=== PATIENT | female | born 1945 | race American Indian/Alaskan Native ===

== ENCOUNTER 2016-11-01 15:06 | Outpatient (CLI) | payer MEDICARE ==
--- NOTE | 2016-11-02 09:31 | Mammography Report ---
Bilateral mammogram: Compared to 11/01/15. CAD study utilized. Findings: Predominance of adipose tissue bilaterally. Benign densities with benign axillary nodes. No microcalcification. Impression: Benign findings. Annual followup recommended. BI-RADS CATEGORY: 2 = Benign ACR BI-RADS MAMMOGRAPHIC CODES: 0 = Needs additional imaging evaluation; 1 = Negative; 2 = Benign; 3 = Probably benign; 4 = Suspicious; 5 = Malignant; 6 = Known biopsy-proven malignancy COMMENT: 1. Dense breast tissue, i.e., adenosis, fibrocystic changes, etc., may obscure an underlying neoplasm. 2. Approximately 10% of cancers are not detected with mammography. 3. A negative mammography report should not delay biopsy if a clinically suspicious mass is present. COMMENT: Patient follow-up letters are generated in [facility].
== END 2016-11-01 15:07 | disposition home or self-care (01) ==
LOC: MAMMO 15:06
PROVIDERS: ATTEND Family Medicine
DX: Z12.31 Encounter for screening mammogram for malignant neoplasm of breast (principal)
CPT/HCPCS: 77067; G0202

== ENCOUNTER 2017-07-13 10:37 | Inpatient (IN) | payer MEDICARE ==
--- NOTE | 2017-07-12 13:27 | Anesthesia Consultation ---
Anesthesia Consult and Med Hx Date of service: 07/13/17 - Airway Anesthetic Teeth Evaluation: Partials ROM Head & Neck: Adequate Mental/Hyoid Distance: Adequate Mallampati Class: Class II Intubation Access Assessment: Probably Good - Pulmonary Exam CTA: Yes - Cardiac Exam Cardiac Exam: RRR - Pre-Operative Health Status ASA Pre-Surgery Classification: ASA3 Proposed Anesthetic Plan: General - Pulmonary COPD: Yes Home Oxygen Therapy: No Hx Sleep Apnea: Yes (WONT USES A CPAP) - Cardiovascular System Hx Hypertension: Yes (1985) Hx Heart Attack/AMI: No - Central Nervous System Hx Psychiatric Problems: No - Other Systems Hx Alcohol Use: No Hx Substance Use: No Hx Cancer: Yes
[~2017-07-13 10:37] MED LIST: LACTATED RINGERS 1,000 ML IV SCH; PEPCID IV NR; PEPCID PO NR; VERSED IV NR
[2017-07-13] MEDS ORDERED: NACL BACTERIOSTATIC INFILTRATI ONE (10:47)
[2017-07-13] MEDS ORDERED: ANCEF/STERILE WATER 2 GM/20 ML IV NR (11:00)
[2017-07-13] MEDS ORDERED: DIPRIVAN 10 MG/ML IV ONE (11:31)
[2017-07-13] MEDS ORDERED: DILAUDID ONE ×3 (11:31→14:15)
[2017-07-13] MEDS ORDERED: XYLOCAINE MPF 2% ONE (11:31)
[2017-07-13] MEDS ORDERED: ZEMURON IV ONE (11:31)
[2017-07-13] MEDS ORDERED: MARCAINE 0.5% 0 ML INFILTRATI ONE (11:38)
[2017-07-13] MEDS ORDERED: ePHEDrine SULFATE ONE (12:22)
[2017-07-13] MEDS ORDERED: ZOFRAN ONE (12:29)
[2017-07-13] MEDS ORDERED: DECADRON ONE (12:29)
[2017-07-13] MEDS ORDERED: LEVAQUIN 500MG/100ML 500 MG/100 ML BAG IV ONE (12:35)
[2017-07-13] MEDS ORDERED: NACL 0.9% IR ONE (12:51)
[2017-07-13] MEDS ORDERED: ROBINUL ONE ×2 (12:53→13:16)
[2017-07-13] MEDS ORDERED: NEOSTIGMINE ONE (12:53)
[2017-07-13] MEDS ORDERED: LACTATED RINGERS 1,000 ML ONE (13:16)
[2017-07-13] MEDS: DILAUDID IV PRN ×3 (13:35→13:55)
[2017-07-13] MEDS ORDERED: LEVAQUIN 500MG/100ML 500 MG/100 ML BAG IV NR (14:00)
--- NOTE | 2017-07-13 14:46 | Operative Report ---
PREOPERATIVE DIAGNOSIS: Rule out cholecystitis. POSTOPERATIVE DIAGNOSES: Cholecystitis with severe thickening and inflammation of the gallbladder surrounded by extensive omental and intestinal adhesions. Also, purulence noted within the gallbladder lumen. PROCEDURE: Exploratory laparotomy and open cholecystectomy. Difficult case due to the amount of inflammation and surrounding adhesions. SURGEON: Ed Wills MD PRECAST MOLDER: Dr. Burton. ANESTHESIA: General. ESTIMATED BLOOD LOSS: Minimal. DRAINS: One 19 Morris drain left. COMPLICATIONS: No complications. DESCRIPTION OF PROCEDURE: The patient was taken to the operating room, prepped and draped in usual sterile fashion. Right subcostal incision was made and abdomen entered. Upon entrance into the abdomen, a large phlegmonous type mass was noted. The previously placed CT-guided percutaneous drainage catheter was identified and followed down to the gallbladder. Gallbladder was grasped at the fundus with a ring clamp. Slow and tedious dissection was carried out until the gallbladder was able to be freed from the surrounding intestinal and omental adhesions. At this point, labs were placed to separate the gallbladder from the transverse colon as well as the stomach. Dissection was carried out from the fundus down towards the infundibulum. Upon reaching the neck of the gallbladder some inflamed lymph nodes were noted. Slow dissection was carried out along this area until the neck of the gallbladder itself could be distinctly identified into the cystic duct. Cystic duct was then doubly ligated as well as clipped and transected. The artery in the area of the lymph node was also doubly ligated and transected. The specimen was then removed. During dissection as previously mentioned, some purulence was noted. Aerobic and anaerobic cultures were taken. The entire area by the gallbladder fossa was then irrigated copiously and dried. Hemostasis obtained with electrocautery as well as Kanwal powder. Once again, the area was inspected and noted to be dry. A 19 Morris was left draining the gallbladder fossa. The drain was brought out through a separate stab incision. The drain was secured to the skin with a 2-0 silk suture. Posterior fascia was then closed with running 0 Vicryl suture and anterior fascia closed with interrupted #1 Vicryl sutures. Subcutaneous tissues irrigated and skin closed with nirali. The patient tolerated the procedure well and left OR in stable condition. JOB# [id number] REBECCA/NTS
[2017-07-13] MEDS: MORPHINE IV PRN ×2 (16:54→21:30)
[2017-07-13] MEDS: D5W/0.45% NACL/KCL 20 MEQ 20 MEQ/1,000 ML BAG IV SCH (18:50)
[2017-07-13] MEDS: ZOFRAN IV PRN (21:30)
[2017-07-14] MEDS: MORPHINE IV PRN ×5 (03:02→20:31)
[2017-07-14] MEDS: D5W/0.45% NACL/KCL 20 MEQ 20 MEQ/1,000 ML BAG IV SCH ×2 (04:23→15:20)
[2017-07-14 04:24] LABS: Basophils % (Auto) 0.1 % (0.0-1.8); Hematocrit 27.8 % (30.3-42.9); Lymphocytes # (Auto) 0.5 K/mm3 (1.2-5.4); Mean Corpuscular HGB Conc 32 % (30-34); Mean Corpuscular Volume 74 fl (79-97); Monocytes # (Auto) 0.7 K/mm3 (0.0-0.8); Monocytes % (Auto) 6.3 % (0.0-7.3); Platelet Count 215 K/mm3 (140-440); Red Blood Count 3.75 M/mm3 (3.65-5.03)
[2017-07-14 04:25] LABS: Mean Corpuscular Hemoglobin 24 pg (28-32)
[2017-07-14 04:54] LABS: Calcium 8.2 mg/dL (8.4-10.2)
[2017-07-14] MEDS: ZOFRAN IV PRN ×3 (06:48→15:26)
--- NOTE | 2017-07-14 09:18 | Progress Note ---
Assessment and Plan POD #1 Pt feeling well. c/o incisional pain. Abd soft. dressings dry. minimal ANDREW drainage. Lungs - slightly decreased bi- basilar BS post op LFT's wnl slightly dehydrated atelectasis CPT aerosol Rx may start ice chips and po meds OOB as henok awaiting hospitalist eval Selected Entries 07/14/17 07:35 Temperature 99.1 F Pulse Rate 75 Respiratory 20 Rate Blood Pressure 114/68 [Left] Laboratory Tests 07/14/17 07/14/17 04:07 04:07 WBC 10.3 Hgb 9.0 L Hct 27.8 L Sodium 139 Potassium 4.0 Chloride 101.6 BUN 32 H Creatinine 1.1 Glucose 147 H Total Bilirubin 0.30 AST 56 H ALT 14 Alkaline Phosphatase 39 Objective Vital Signs - 12hr 07/14/17 07/14/17 07/14/17 00:24 04:19 04:20 Temperature 98.5 F 99.6 F Pulse Rate 71 71 70 Respiratory 20 20 Rate Blood Pressure 109/60 112/67 Blood Pressure [Left] O2 Sat by Pulse 92 93 93 Oximetry 07/14/17 07/14/17 07:34 07:35 Temperature 99.1 F Pulse Rate 71 75 Respiratory 20 Rate Blood Pressure Blood Pressure 114/68 [Left] O2 Sat by Pulse 91 90 Oximetry - Labs 07/14/17 04:07 07/14/17 04:07 Diabetes panel 07/14/17 Range/Units 04:07 Sodium 139 (137-145) mmol/L Potassium 4.0 (3.6-5.0) mmol/L Chloride 101.6 (98-107) mmol/L Carbon Dioxide 24 (22-30) mmol/L BUN 32 H (7-17) mg/dL Creatinine 1.1 (0.7-1.2) mg/dL Glucose 147 H (65-100) mg/dL Calcium 8.2 L (8.4-10.2) mg/dL AST 56 H (5-40) units/L ALT 14 (7-56) units/L Alkaline Phosphatase 39 (35-129) units/L Total Protein 6.1 L (6.3-8.2) g/dL Albumin 3.0 L (3.9-5) g/dL Calcium panel 07/14/17 Range/Units 04:07 Calcium 8.2 L (8.4-10.2) mg/dL Albumin 3.0 L (3.9-5) g/dL Pituitary panel 07/14/17 Range/Units 04:07 Sodium 139 (137-145) mmol/L Potassium 4.0 (3.6-5.0) mmol/L Chloride 101.6 (98-107) mmol/L Carbon Dioxide 24 (22-30) mmol/L BUN 32 H (7-17) mg/dL Creatinine 1.1 (0.7-1.2) mg/dL Glucose 147 H (65-100) mg/dL Calcium 8.2 L (8.4-10.2) mg/dL Adrenal panel 07/14/17 Range/Units 04:07 Sodium 139 (137-145) mmol/L Potassium 4.0 (3.6-5.0) mmol/L Chloride 101.6 (98-107) mmol/L Carbon Dioxide 24 (22-30) mmol/L BUN 32 H (7-17) mg/dL Creatinine 1.1 (0.7-1.2) mg/dL Glucose 147 H (65-100) mg/dL Calcium 8.2 L (8.4-10.2) mg/dL Total Bilirubin 0.30 (0.1-1.2) mg/dL AST 56 H (5-40) units/L ALT 14 (7-56) units/L Alkaline Phosphatase 39 (35-129) units/L Total Protein 6.1 L (6.3-8.2) g/dL Albumin 3.0 L (3.9-5) g/dL
[2017-07-14] MEDS ORDERED: PROAIR IH PRN (09:21)
[2017-07-14] MEDS ORDERED: PROVENTIL IH PRN (09:44)
--- NOTE | 2017-07-14 18:52 | History and Physical Report ---
History of Present Illness Date of admission: 07/13/17 13:21 Chief complaint: My stomach hurts a little but im fine History of present illness: 72 YO Female with Obesity, COPD, LUCA Noncompliant with CPAP, consult placed by Dr. Wills for COPD. Pt seen and evaluated, Pt denies shortness of breath, fever , chills, CP, Palpitations, NVD,Syncope, Increased sputum production, increased productive cough, nicotine use, unintentional weight loss, night sweats, leg swelling, calf pain, individual/family history of DVT/PE. No reported nursing events. Past History Past Medical History: COPD, other (Obesity, LUCA) Past Surgical History: cholecystectomy Social history: . denies: smoking, alcohol abuse, prescription drug abuse Family history: diabetes, hypertension Medications and Allergies Allergies Allergy/AdvReac Type Severity Reaction Status Date / Time lisinopril Allergy Unknown Verified 07/09/17 17:44 Home Medications Medication Instructions Recorded Confirmed Last Taken Type Aspirin EC [Aspirin Enteric Coated 81 mg PO QDAY 06/07/17 07/13/17 1 Week Ago History TAB] ~07/06/17 Bimatoprost [Lumigan 0.01%] 1 drop OP QPM 06/07/17 07/13/17 2 Weeks Ago History ~06/29/17 Cetirizine HCl [ZyrTEC] 10 mg PO QDAY PRN 06/07/17 07/13/17 3 Weeks Ago History ~06/22/17 Fluticasone/Vilanterol [Breo 1 each IH DAILY 06/07/17 07/13/17 07/13/17 08:45 History Ellipta 100-25 Mcg INH] Omeprazole 40 mg PO QDAY 06/07/17 07/13/17 07/11/17 History Spironolactone [Aldactone] 25 mg PO QDAY 06/07/17 07/13/17 07/12/17 History Acetaminophen [Acetaminophen TAB] 325 mg PO Q4H PRN #30 tablet 06/13/17 1 Month Ago Rx ~06/13/17 Levofloxacin [Levaquin] 750 mg PO QDAY #7 day 06/13/17 07/13/17 3 Weeks Ago Rx ~06/22/17 Metoclopramide [Reglan ORAL LIQ] 10 mg PO Q8HR PRN #7 day 06/13/17 07/13/17 1 Month Ago Rx ~06/13/17 Oxycodone HCl/Acetaminophen 1 each PO Q4H PRN #30 tablet 06/13/17 07/13/1707/12 Rx [Percocet 10/325 mg] Atenolol [Tenormin] 100 mg PO DAILY 07/13/17 07/13/17 07/13/17 08:45 History Losartan/Hydrochlorothiazide 1 tab PO DAILY 07/13/17 07/13/17 07/13/17 08:45 History [Losartan-Hctz 100-25 mg Tab] Active Meds: Active Medications Acetaminophen/Hydrocodone Bitart ([place] 5/325) 1 each PO Q6H PRN PRN Reason: Pain, Moderate (4-6) Albuterol (Proair) 2 puff IH Q6HRT PRN PRN Reason: Shortness Of Breath Lactated Ringer's (Lactated Ringers) 1,000 mls @ 100 mls/hr IV DIRECT [place] Last Admin: 07/13/17 10:55 Dose: 100 mls/hr Potassium Chloride/Dextrose/Sod Cl (D5w/0.45% Nacl/Kcl 20 Meq) 20 meq in 1,000 mls @ 100 mls/hr IV DIRECT [place] Last Admin: 07/14/17 15:20 Dose: 100 mls/hr Morphine Sulfate (Morphine) 2 mg IV Q3H PRN PRN Reason: Pain, Moderate (4-6) Last Admin: 07/14/17 15:25 Dose: 2 mg Ondansetron HCl (Zofran) 4 mg IV Q4H PRN PRN Reason: N/V unrelieved by Eugenio Last Admin: 07/14/17 15:26 Dose: 4 mg Review of Systems Constitutional: no weight loss, no weight gain, no fever, no chills Ears, nose, mouth and throat: no ear pain, no ear discharge, no tinnitis, no decreased hearing, no nose pain Breasts: no change in shape, no swelling, no mass Cardiovascular: no chest pain, no orthopnea, no palpitations, no rapid/ irregular heart beat, no edema Respiratory: no cough, no cough with sputum, no excessive sputum, no hemoptysis , no shortness of breath Gastrointestinal: no nausea, no vomiting, no diarrhea, no constipation Genitourinary Female: no pelvic pain, no flank pain, no menorrhagia, no dysuria , no urinary frequency Rectal: no pain, no incontinence, no bleeding Musculoskeletal: no neck stiffness, no neck pain, no shooting arm pain, no arm numbness/tingling Integumentary: no rash, no pruritis, no redness, no sores Neurological: no transient paralysis, no paralysis, no weakness, no parathesias , no numbness Psychiatric: no memory loss, no change in sleep habits, no sleep disturbances, no insomnia, no hypersomnia, no change in appetite Endocrine: no heat intolerance, no polyphagia, no excessive thirst, no polydipsia, no polyuria, no nocturia, no weight change Hematologic/Lymphatic: no easy bruising, no easy bleeding Allergic/Immunologic: no urticaria, no allergic rhinitis, no wheezing Exam - Constitutional Vitals: Temp Pulse Resp BP Pulse Ox 99.4 F 71 20 135/82 94 07/14/17 12:05 07/14/17 12:05 07/14/17 15:55 07/14/17 12:05 07/14/17 12:05 General appearance: Present: no acute distress, obese - EENT Eyes: Present: PERRL ENT: hearing intact, clear oral mucosa - Neck Neck: Present: supple, normal ROM - Respiratory Respiratory effort: normal Respiratory: bilateral: CTA - Cardiovascular Heart Sounds: Present: S1 & S2. Absent: rub, click - Extremities Extremities: pulses symmetrical, No edema Peripheral Pulses: within normal limits - Abdominal General gastrointestinal: Present: soft, tender, non-distended, normal bowel sounds Localized gastrointestinal: tender: RLQ (appropriately tender) Female genitourinary: Present: normal - Integumentary Integumentary: Present: clear, warm, dry - Musculoskeletal Musculoskeletal: gait normal, strength equal bilaterally - Psychiatric Psychiatric: appropriate mood/affect, intact judgment & insight - Neurologic Neurologic: CNII-XII intact, moves all extremities Results - Labs CBC & Chem 7: 07/14/17 04:07 07/14/17 04:07 Labs: Abnormal lab results 07/14/17 07/14/17 Range/Units 04:07 04:07 Hgb 9.0 L (10.1-14.3) gm/dl Hct 27.8 L (30.3-42.9) % MCV 74 L (79-97) fl MCH 24 L (28-32) pg Lymph % (Auto) 5.0 L (13.4-35.0) % Lymph # 0.5 L (1.2-5.4) K/mm3 Seg Neutrophils % 88.6 H (40.0-70.0) % Seg Neutrophils # 9.1 H (1.8-7.7) K/mm3 BUN 32 H (7-17) mg/dL Glucose 147 H (65-100) mg/dL Calcium 8.2 L (8.4-10.2) mg/dL AST 56 H (5-40) units/L Total Protein 6.1 L (6.3-8.2) g/dL Albumin 3.0 L (3.9-5) g/dL Assessment and Plan - Patient Problems (1) COPD (chronic obstructive pulmonary disease) Current Visit: Yes Status: Acute Plan to address problem: Early ambulation, OOB to chair QID and PRN, Ambulate in hallway, Incentive spirometry, aspiration precautions, nebulizer therapy prn, supplemental oxygen prn as clinically indicated, (2) LUCA (obstructive sleep apnea) Current Visit: Yes Status: Acute Plan to address problem: Pt noncompliant with CPAP (3) Obesity (BMI 35.0-39.9 without comorbidity) Current Visit: Yes Status: Acute Plan to address problem: Increased physical activity as discharge, balanced diet.
[2017-07-15] MEDS: MORPHINE IV PRN ×5 (01:14→20:22)
[2017-07-15] MEDS: ZOFRAN IV PRN ×2 (01:14→23:06)
[2017-07-15] MEDS: D5W/0.45% NACL/KCL 20 MEQ 20 MEQ/1,000 ML BAG IV SCH ×3 (03:39→22:52)
[2017-07-15 04:47] LABS: Basophils % (Auto) 0.3 % (0.0-1.8); Eosinophils % (Auto) 0.2 % (0.0-4.3); Hematocrit 30.4 % (30.3-42.9); Lymphocytes # (Auto) 0.6 K/mm3 (1.2-5.4); Lymphocytes % (Auto) 5.4 % (13.4-35.0); Mean Corpuscular HGB Conc 33 % (30-34); Mean Corpuscular Volume 75 fl (79-97); Monocytes # (Auto) 0.7 K/mm3 (0.0-0.8); Monocytes % (Auto) 6.5 % (0.0-7.3); Platelet Count 226 K/mm3 (140-440); Red Blood Count 4.08 M/mm3 (3.65-5.03); Red Cell Distribution Width 14.6 % (13.2-15.2)
[2017-07-15 04:48] LABS: Mean Corpuscular Hemoglobin 25 pg (28-32)
--- NOTE | 2017-07-15 09:50 | Progress Note ---
Assessment and Plan POD # 2 Pt feeling O.K. not really ambulating Abd soft. dressings dry. minimal ANDREW drainage. bile cult + e coli stable uncontrolled HTN resp Rx & ambulation needed (have not been started) h/h stable continue Levaquin attempt low fat cl liq diet HTN control as per hospitalist Selected Entries 07/15/17 07/15/17 07/15/17 00:50 04:01 07:32 Temperature 99.5 F Pulse Rate 74 Blood Pressure 146/86 163/94 153/94 Laboratory Tests 07/15/17 04:18 WBC 11.3 H Hgb 10.0 L Hct 30.4 Objective Vital Signs - 12hr 07/15/17 07/15/17 07/15/17 00:50 04:01 07:32 Temperature 99.3 F 99.0 F 99.5 F Pulse Rate 75 76 74 Respiratory 20 20 20 Rate Blood Pressure 146/86 163/94 153/94 O2 Sat by Pulse 92 96 95 Oximetry - Labs 07/15/17 04:18 07/14/17 04:07
[2017-07-15] MEDS: LEVAQUIN 500MG/100ML 500 MG/100 ML BAG IV SCH (11:10)
[2017-07-15] MEDS: APRESOLINE IV PRN (16:13)
[2017-07-16] MEDS: MORPHINE IV PRN ×2 (02:05→20:39)
[2017-07-16] MEDS: NORCO 5/325 PO PRN ×5 (05:33→23:51)
[2017-07-16] MEDS: D5W/0.45% NACL/KCL 20 MEQ 20 MEQ/1,000 ML BAG IV SCH ×2 (10:01→19:56)
[2017-07-16] MEDS: LEVAQUIN 500MG/100ML 500 MG/100 ML BAG IV SCH (10:01)
--- NOTE | 2017-07-16 11:03 | Progress Note ---
Assessment and Plan Assessment and plan: 72 YO Female with Obesity, COPD, LUCA Noncompliant with CPAP, consult placed by Dr. Wills for COPD and HTN in a patient with post op open cholecystectomy. Pt seen and evaluated, Pt denies shortness of breath, fever, chills, CP, Palpitations, NVD,Syncope, Increased sputum production, increased productive cough, nicotine use, unintentional weight loss, night sweats, leg swelling, calf pain, individual/family history of DVT/PE. No reported nursing events. (1) S/P Open cholecystectomy * Surgery following (2) HTN Urgency * Restart home meds * IV hydralazin prn (3) COPD (chronic obstructive pulmonary disease) Early ambulation, OOB to chair QID and PRN, Ambulate in hallway, Incentive spirometry, aspiration precautions, nebulizer therapy prn, supplemental oxygen prn as clinically indicated, (4) LUCA (obstructive sleep apnea) Pt noncompliant with CPAP (5) Obesity (BMI 35.0-39.9 without comorbidity) Increased physical activity as discharge, balanced diet. (6) DVT/GI prophy As ordered. History Interval history: Patient seen and examined, remains with some abdominal pain, no BM yet but with gas. Hospitalist Physical - Constitutional Vitals: Temp Pulse Resp BP Pulse Ox 98.8 F 80 20 156/95 95 07/16/17 07:25 07/16/17 07:25 07/16/17 07:25 07/16/17 07:25 07/16/17 07:25 General appearance: Present: no acute distress, obese - EENT Eyes: Present: PERRL, EOM intact ENT: hearing intact - Neck Neck: Present: supple, normal ROM - Respiratory Respiratory effort: normal Respiratory: bilateral: CTA - Cardiovascular Rhythm: regular Heart Sounds: Present: S1 & S2 - Extremities Extremities: no ischemia, pulses intact, pulses symmetrical, No edema, normal temperature, Full ROM Peripheral Pulses: within normal limits - Abdominal General gastrointestinal: soft, tender, other (katie drain in place) Localized gastrointestinal: tender: RUQ (surgical site) - Integumentary Integumentary: Present: warm, dry (surgical dressing in place) - Psychiatric Psychiatric: appropriate mood/affect - Neurologic Neurologic: CNII-XII intact - Allied Health Allied health notes reviewed: nursing Results - Labs CBC & Chem 7: 07/15/17 04:18 07/14/17 04:07 Labs: Laboratory Last Values WBC 11.3 K/mm3 (4.5-11.0) H 07/15/17 04:18 RBC 4.08 M/mm3 (3.65-5.03) 07/15/17 04:18 Hgb 10.0 gm/dl (10.1-14.3) L 07/15/17 04:18 Hct 30.4 % (30.3-42.9) 07/15/17 04:18 MCV 75 fl (79-97) L 07/15/17 04:18 MCH 25 pg (28-32) L 07/15/17 04:18 MCHC 33 % (30-34) 07/15/17 04:18 RDW 14.6 % (13.2-15.2) 07/15/17 04:18 Plt Count 226 K/mm3 (140-440) 07/15/17 04:18 Lymph % (Auto) 5.4 % (13.4-35.0) L 07/15/17 04:18 [place] % (Auto) 6.5 % (0.0-7.3) 07/15/17 04:18 Eos % (Auto) 0.2 % (0.0-4.3) 07/15/17 04:18 Baso % (Auto) 0.3 % (0.0-1.8) 07/15/17 04:18 Lymph # 0.6 K/mm3 (1.2-5.4) L 07/15/17 04:18 [place] # 0.7 K/mm3 (0.0-0.8) 07/15/17 04:18 Eos # 0.0 K/mm3 (0.0-0.4) 07/15/17 04:18 Baso # 0.0 K/mm3 (0.0-0.1) 07/15/17 04:18 Seg Neutrophils % 87.6 % (40.0-70.0) H 07/15/17 04:18 Seg Neutrophils # 9.9 K/mm3 (1.8-7.7) H 07/15/17 04:18 Sodium 139 mmol/L (137-145) 07/14/17 04:07 Potassium 4.0 mmol/L (3.6-5.0) 07/14/17 04:07 Chloride 101.6 mmol/L (98-107) 07/14/17 04:07 Carbon Dioxide 24 mmol/L (22-30) 07/14/17 04:07 Anion Gap 17 mmol/L 07/14/17 04:07 BUN 32 mg/dL (7-17) H 07/14/17 04:07 Creatinine 1.1 mg/dL (0.7-1.2) 07/14/17 04:07 Estimated GFR 59 ml/min 07/14/17 04:07 BUN/Creatinine Ratio 29 % 07/14/17 04:07 Glucose 147 mg/dL (65-100) H 07/14/17 04:07 Calcium 8.2 mg/dL (8.4-10.2) L 07/14/17 04:07 Total Bilirubin 0.30 mg/dL (0.1-1.2) 07/14/17 04:07 AST 56 units/L (5-40) H 07/14/17 04:07 ALT 14 units/L (7-56) 07/14/17 04:07 Alkaline Phosphatase 39 units/L (35-129) 07/14/17 04:07 Total Protein 6.1 g/dL (6.3-8.2) L 07/14/17 04:07 Albumin 3.0 g/dL (3.9-5) L 07/14/17 04:07 Albumin/Globulin Ratio 1.0 % 07/14/17 04:07
[2017-07-16] MEDS ORDERED: NON-FORMULARY (Losartan/Hydrochlorothiazide [Losartan-Hctz 100-25 Mg Tab] 1 TAB) PO SCH (11:15)
[2017-07-16] MEDS ORDERED: NON-FORMULARY (Atenolol [Tenormin] 100 MG) PO SCH (11:15)
[2017-07-16] MEDS ORDERED: NON-FORMULARY (Fluticasone/Vilanterol [Breo Ellipta 100-25 Mcg Inh] 1 EACH) IH SCH (11:15)
[2017-07-16] MEDS ORDERED: NON-FORMULARY (Cetirizine Hcl [Zyrtec] 10 MG) PO PRN (11:20)
[2017-07-16] MEDS ORDERED: TENORMIN PO SCH (12:00)
[2017-07-16] MEDS: COZAAR PO SCH (13:16)
[2017-07-16] MEDS: ALDACTONE PO SCH (13:17)
[2017-07-16] MEDS: TENORMIN PO SCH (13:17)
[2017-07-16] MEDS: HCTZ PO SCH (13:18)
[2017-07-16] MEDS ORDERED: PROVENTIL IH PRN (14:00)
[2017-07-16] MEDS: CLARITIN PO SCH (14:09)
[2017-07-16] MEDS ORDERED: NON-FORMULARY (Bimatoprost [Lumigan 0.01%] 1 DROP) OP SCH (18:00)
[2017-07-16] MEDS: XALATAN 0.005% OU SCH (18:22)
[2017-07-16] MEDS: ZOFRAN IV PRN (18:28)
--- NOTE | 2017-07-16 18:39 | Progress Note ---
Assessment and Plan Assessment and plan: 72 YO Female with Obesity, COPD, LUCA Noncompliant with CPAP, consult placed by Dr. Wills for COPD and HTN in a patient with post op open cholecystectomy. Pt seen and evaluated, Pt denies shortness of breath, fever, chills, CP, Palpitations, NVD,Syncope, Increased sputum production, increased productive cough, nicotine use, unintentional weight loss, night sweats, leg swelling, calf pain, individual/family history of DVT/PE. No reported nursing events. (1) S/P Open cholecystectomy * Surgery following (2) HTN Urgency * Restart home meds * IV hydralazin prn (3) COPD (chronic obstructive pulmonary disease) Early ambulation, OOB to chair QID and PRN, Ambulate in hallway, Incentive spirometry, aspiration precautions, nebulizer therapy prn, supplemental oxygen prn as clinically indicated, (4) LUCA (obstructive sleep apnea) Pt noncompliant with CPAP (5) Obesity (BMI 35.0-39.9 without comorbidity) Increased physical activity as discharge, balanced diet. (6) DVT/GI prophy As ordered. History Interval history: Patient seen and examined, remains with some abdominal pain, no BM yet but with gas. AMBULATED TODAY Hospitalist Physical - Physical exam Narrative exam: General appearance: Present: no acute distress, obese - EENT Eyes: Present: PERRL, EOM intact ENT: hearing intact - Neck Neck: Present: supple, normal ROM - Respiratory Respiratory effort: normal Respiratory: bilateral: CTA - Cardiovascular Rhythm: regular Heart Sounds: Present: S1 & S2 - Extremities Extremities: no ischemia, pulses intact, pulses symmetrical, No edema, normal temperature, Full ROM Peripheral Pulses: within normal limits - Abdominal General gastrointestinal: soft, tender, other (katie drain in place) Localized gastrointestinal: tender: RUQ (surgical site) - Integumentary Integumentary: Present: warm, dry (surgical dressing in place) - Psychiatric Psychiatric: appropriate mood/affect - Neurologic Neurologic: CNII-XII intact - Allied Health Allied health notes reviewed: nursing - Constitutional Vitals: Temp Pulse Resp BP Pulse Ox 98.7 F 60 20 120/71 93 07/16/17 17:23 07/16/17 17:23 07/16/17 17:23 07/16/17 17:23 07/16/17 17:23 General appearance: Present: no acute distress, obese Results - Labs CBC & Chem 7: 07/15/17 04:18 07/14/17 04:07 Labs: Laboratory Last Values WBC 11.3 K/mm3 (4.5-11.0) H 07/15/17 04:18 RBC 4.08 M/mm3 (3.65-5.03) 07/15/17 04:18 Hgb 10.0 gm/dl (10.1-14.3) L 07/15/17 04:18 Hct 30.4 % (30.3-42.9) 07/15/17 04:18 MCV 75 fl (79-97) L 07/15/17 04:18 MCH 25 pg (28-32) L 07/15/17 04:18 MCHC 33 % (30-34) 07/15/17 04:18 RDW 14.6 % (13.2-15.2) 07/15/17 04:18 Plt Count 226 K/mm3 (140-440) 07/15/17 04:18 Lymph % (Auto) 5.4 % (13.4-35.0) L 07/15/17 04:18 [place] % (Auto) 6.5 % (0.0-7.3) 07/15/17 04:18 Eos % (Auto) 0.2 % (0.0-4.3) 07/15/17 04:18 Baso % (Auto) 0.3 % (0.0-1.8) 07/15/17 04:18 Lymph # 0.6 K/mm3 (1.2-5.4) L 07/15/17 04:18 [place] # 0.7 K/mm3 (0.0-0.8) 07/15/17 04:18 Eos # 0.0 K/mm3 (0.0-0.4) 07/15/17 04:18 Baso # 0.0 K/mm3 (0.0-0.1) 07/15/17 04:18 Seg Neutrophils % 87.6 % (40.0-70.0) H 07/15/17 04:18 Seg Neutrophils # 9.9 K/mm3 (1.8-7.7) H 07/15/17 04:18 Sodium 139 mmol/L (137-145) 07/14/17 04:07 Potassium 4.0 mmol/L (3.6-5.0) 07/14/17 04:07 Chloride 101.6 mmol/L (98-107) 07/14/17 04:07 Carbon Dioxide 24 mmol/L (22-30) 07/14/17 04:07 Anion Gap 17 mmol/L 07/14/17 04:07 BUN 32 mg/dL (7-17) H 07/14/17 04:07 Creatinine 1.1 mg/dL (0.7-1.2) 07/14/17 04:07 Estimated GFR 59 ml/min 07/14/17 04:07 BUN/Creatinine Ratio 29 % 07/14/17 04:07 Glucose 147 mg/dL (65-100) H 07/14/17 04:07 Calcium 8.2 mg/dL (8.4-10.2) L 07/14/17 04:07 Total Bilirubin 0.30 mg/dL (0.1-1.2) 07/14/17 04:07 AST 56 units/L (5-40) H 07/14/17 04:07 ALT 14 units/L (7-56) 07/14/17 04:07 Alkaline Phosphatase 39 units/L (35-129) 07/14/17 04:07 Total Protein 6.1 g/dL (6.3-8.2) L 07/14/17 04:07 Albumin 3.0 g/dL (3.9-5) L 07/14/17 04:07 Albumin/Globulin Ratio 1.0 % 07/14/17 04:07
[2017-07-16] MEDS: APRESOLINE IV PRN (19:53)
[2017-07-17] MEDS: MORPHINE IV PRN ×3 (05:37→21:53)
[2017-07-17] MEDS: NORCO 5/325 PO PRN ×2 (05:37→12:32)
[2017-07-17] MEDS: D5W/0.45% NACL/KCL 20 MEQ 20 MEQ/1,000 ML BAG IV SCH ×2 (05:43→17:48)
[2017-07-17] MEDS: PULMICORT IH SCH ×2 (07:48→21:41)
[2017-07-17] MEDS: BROVANA NEBU IH SCH ×2 (07:48→21:41)
[2017-07-17] MEDS: ALDACTONE PO SCH (09:58)
[2017-07-17] MEDS: HCTZ PO SCH (10:00)
[2017-07-17] MEDS: TENORMIN PO SCH (10:02)
[2017-07-17] MEDS: COZAAR PO SCH (10:02)
--- NOTE | 2017-07-17 10:13 | Progress Note ---
Assessment and Plan Assessment and plan: 72 YO Female with Obesity, COPD, LUCA Noncompliant with CPAP, consult placed by Dr. Wills for COPD and HTN in a patient with post op open cholecystectomy. Pt seen and evaluated, Pt denies shortness of breath, fever, chills, CP, Palpitations, NVD,Syncope, Increased sputum production, increased productive cough, nicotine use, unintentional weight loss, night sweats, leg swelling, calf pain, individual/family history of DVT/PE. No reported nursing events. (1) S/P Open cholecystectomy * Surgery following * Cultures with GNR-Ecoli. Resistant to Flouroquinolones. Will discontinue and start on AZITHROMYCIN AND FLAGYL * Can be discharged on both abx x 7-10 days * Antiemetic (2) HTN Urgency * Restarted home meds * Improved * IV hydralazin prn (3) COPD (chronic obstructive pulmonary disease) Early ambulation, OOB to chair QID and PRN, Ambulate in hallway, Incentive spirometry, aspiration precautions, nebulizer therapy prn, supplemental oxygen prn as clinically indicated, (4) LUCA (obstructive sleep apnea) Pt noncompliant with CPAP (5) Obesity (BMI 35.0-39.9 without comorbidity) Increased physical activity as discharge, balanced diet. (6) DVT/GI prophy As ordered. Stable for discharge from Hospitalist stand point History Interval history: Patient seen and examined, remains with some abdominal pain, No BM yet but with gas. Some nausea. Hospitalist Physical - Physical exam Narrative exam: General appearance: Present: no acute distress, obese - EENT Eyes: Present: PERRL, EOM intact ENT: hearing intact - Neck Neck: Present: supple, normal ROM - Respiratory Respiratory effort: normal Respiratory: bilateral: CTA - Cardiovascular Rhythm: regular Heart Sounds: Present: S1 & S2 - Extremities Extremities: no ischemia, pulses intact, pulses symmetrical, No edema, normal temperature, Full ROM Peripheral Pulses: within normal limits - Abdominal General gastrointestinal: soft, tender, other (katie drain in place) Localized gastrointestinal: Tender: RUQ (surgical site) - Integumentary Integumentary: Present: warm, dry (surgical dressing in place) - Psychiatric Psychiatric: appropriate mood/affect - Neurologic Neurologic: CNII-XII intact - Allied Health Allied health notes reviewed: nursing - Constitutional Vitals: Temp Pulse Resp BP Pulse Ox 98.8 F 78 16 110/66 95 07/17/17 07:38 07/17/17 07:55 07/17/17 07:55 07/17/17 07:38 07/17/17 07:45 General appearance: Present: no acute distress, obese Results - Labs CBC & Chem 7: 07/15/17 04:18 07/14/17 04:07 Labs: Laboratory Last Values WBC 11.3 K/mm3 (4.5-11.0) H 07/15/17 04:18 RBC 4.08 M/mm3 (3.65-5.03) 07/15/17 04:18 Hgb 10.0 gm/dl (10.1-14.3) L 07/15/17 04:18 Hct 30.4 % (30.3-42.9) 07/15/17 04:18 MCV 75 fl (79-97) L 07/15/17 04:18 MCH 25 pg (28-32) L 07/15/17 04:18 MCHC 33 % (30-34) 07/15/17 04:18 RDW 14.6 % (13.2-15.2) 07/15/17 04:18 Plt Count 226 K/mm3 (140-440) 07/15/17 04:18 Lymph % (Auto) 5.4 % (13.4-35.0) L 07/15/17 04:18 [place] % (Auto) 6.5 % (0.0-7.3) 07/15/17 04:18 Eos % (Auto) 0.2 % (0.0-4.3) 07/15/17 04:18 Baso % (Auto) 0.3 % (0.0-1.8) 07/15/17 04:18 Lymph # 0.6 K/mm3 (1.2-5.4) L 07/15/17 04:18 [place] # 0.7 K/mm3 (0.0-0.8) 07/15/17 04:18 Eos # 0.0 K/mm3 (0.0-0.4) 07/15/17 04:18 Baso # 0.0 K/mm3 (0.0-0.1) 07/15/17 04:18 Seg Neutrophils % 87.6 % (40.0-70.0) H 07/15/17 04:18 Seg Neutrophils # 9.9 K/mm3 (1.8-7.7) H 07/15/17 04:18 Sodium 139 mmol/L (137-145) 07/14/17 04:07 Potassium 4.0 mmol/L (3.6-5.0) 07/14/17 04:07 Chloride 101.6 mmol/L (98-107) 07/14/17 04:07 Carbon Dioxide 24 mmol/L (22-30) 07/14/17 04:07 Anion Gap 17 mmol/L 07/14/17 04:07 BUN 32 mg/dL (7-17) H 07/14/17 04:07 Creatinine 1.1 mg/dL (0.7-1.2) 07/14/17 04:07 Estimated GFR 59 ml/min 07/14/17 04:07 BUN/Creatinine Ratio 29 % 07/14/17 04:07 Glucose 147 mg/dL (65-100) H 07/14/17 04:07 Calcium 8.2 mg/dL (8.4-10.2) L 07/14/17 04:07 Total Bilirubin 0.30 mg/dL (0.1-1.2) 07/14/17 04:07 AST 56 units/L (5-40) H 07/14/17 04:07 ALT 14 units/L (7-56) 07/14/17 04:07 Alkaline Phosphatase 39 units/L (35-129) 07/14/17 04:07 Total Protein 6.1 g/dL (6.3-8.2) L 07/14/17 04:07 Albumin 3.0 g/dL (3.9-5) L 07/14/17 04:07 Albumin/Globulin Ratio 1.0 % 07/14/17 04:07
[2017-07-17] MEDS ORDERED: ZITHROMAX 500 MG in NACL 0.9% 250ML 250 ML IV SCH (12:30)
[2017-07-17] MEDS: FLAGYL PO SCH ×2 (12:31→21:53)
[2017-07-17] MEDS: CLARITIN PO SCH (12:31)
--- NOTE | 2017-07-17 13:03 | Progress Note ---
Assessment and Plan POD # 4 Pt feeling well but c/o nausea. Asked for basin while I was in room. limited po intake. + flatus Abd soft, non tender. + BS. incision clean and dry antibiotics changed as per C&S stable keep npo except ice chips and meds until nausea resolves ambulate down halls. Selected Entries 07/17/17 11:09 Temperature 98.9 F Respiratory 20 Rate Blood Pressure 115/62 Objective Vital Signs - 12hr 07/17/17 07/17/17 07/17/17 04:34 07:38 07:45 Temperature 98.1 F 98.8 F Pulse Rate 76 74 Pulse Rate [ 76 Anterior Bilateral Throughout] Respiratory 22 16 Rate Respiratory 16 Rate [Anterior Bilateral Throughout] Blood Pressure 135/81 Blood Pressure 110/66 [Left] O2 Sat by Pulse 97 98 95 Oximetry 07/17/17 07/17/17 07:55 11:09 Temperature 98.9 F Pulse Rate 77 Pulse Rate [ 78 Anterior Bilateral Throughout] Respiratory 20 Rate Respiratory 16 Rate [Anterior Bilateral Throughout] Blood Pressure 115/62 Blood Pressure [Left] O2 Sat by Pulse 100 Oximetry - Labs 07/15/17 04:18 07/14/17 04:07
[2017-07-17] MEDS: ZOFRAN IV PRN (13:19)
[2017-07-17] MEDS: cefTRIAXone 1 GM in NACL 0.9% 20 ML IV SCH (17:44)
[2017-07-17] MEDS: XALATAN 0.005% OU SCH (17:49)
[2017-07-18] MEDS: NORCO 5/325 PO PRN ×2 (00:25→22:30)
[2017-07-18] MEDS: MORPHINE IV PRN ×5 (02:04→22:34)
[2017-07-18] MEDS: D5W/0.45% NACL/KCL 20 MEQ 20 MEQ/1,000 ML BAG IV SCH (02:09)
[2017-07-18 04:39] LABS: Basophils % (Auto) 0.1 % (0.0-1.8); Eosinophils # (Auto) 0.1 K/mm3 (0.0-0.4); Eosinophils % (Auto) 1.1 % (0.0-4.3); Hematocrit 27.5 % (30.3-42.9); Lymphocytes # (Auto) 0.6 K/mm3 (1.2-5.4); Lymphocytes % (Auto) 4.9 % (13.4-35.0); Mean Corpuscular HGB Conc 33 % (30-34); Mean Corpuscular Volume 73 fl (79-97); Monocytes # (Auto) 1.1 K/mm3 (0.0-0.8); Monocytes % (Auto) 8.8 % (0.0-7.3); Platelet Count 195 K/mm3 (140-440); Red Blood Count 3.75 M/mm3 (3.65-5.03); Red Cell Distribution Width 14.9 % (13.2-15.2)
[2017-07-18 04:46] LABS: Mean Corpuscular Hemoglobin 24 pg (28-32)
[2017-07-18 04:57] LABS: Alanine Aminotransferase 7 units/L (7-56); Albumin 2.6 g/dL (3.9-5); BUN/Creatinine Ratio 18; Blood Urea Nitrogen 14 mg/dL (7-17); Calcium 7.6 mg/dL (8.4-10.2); Hemolysis Index 3
[2017-07-18] MEDS: FLAGYL PO SCH ×3 (06:14→22:30)
[2017-07-18] MEDS: BROVANA NEBU IH SCH ×2 (07:47→22:28)
[2017-07-18] MEDS: PULMICORT IH SCH ×2 (07:47→22:29)
[2017-07-18] MEDS ORDERED: ZITHROMAX 500 MG in NACL 0.9% 250ML 250 ML IV SCH (10:00)
--- NOTE | 2017-07-18 10:39 | XRay Report ---
ABDOMINAL SERIES: History: Atelectasis, ileus. Single AP view of the chest demonstrates clear lungs with trace left pleural effusion. Heart size is within normal limits. No significant atelectasis. Surgical clips and drain are noted in the right upper quadrant. The bowel gas pattern is within normal limits. No evidence for obstruction or significant ileus. IMPRESSION: No acute process noted. Trace left pleural effusion. Abdomen is within normal limits.
[2017-07-18] MEDS: CLARITIN PO SCH (11:25)
[2017-07-18] MEDS: ALDACTONE PO SCH (11:25)
[2017-07-18] MEDS: HCTZ PO SCH (11:26)
[2017-07-18] MEDS: TENORMIN PO SCH (11:29)
[2017-07-18] MEDS: COZAAR PO SCH (11:30)
[2017-07-18] MEDS: cefTRIAXone 1 GM in NACL 0.9% 20 ML IV SCH (11:45)
--- NOTE | 2017-07-18 13:56 | Progress Note ---
Assessment and Plan POD # 5 Pt feeling well this am. no more nausea. hungry Abd soft, non tender CxR & Abd series - wnl stable re-attempt low fat full liq diet possible d/c in am if diet henok well Selected Entries 07/18/17 07/18/17 11:19 11:30 Temperature 98.7 F Pulse Rate 66 Respiratory 20 Rate Blood Pressure 144/83 Laboratory Tests 07/18/17 07/18/17 04:07 04:07 WBC 12.7 H Hgb 9.0 L Hct 27.5 L Sodium 131 L D Potassium 4.3 Chloride 97.2 L Carbon Dioxide 20 L BUN 14 Creatinine 0.8 Objective Vital Signs - 12hr 07/18/17 07/18/17 07/18/17 04:59 07:42 07:48 Temperature 99.0 F 99.2 F Pulse Rate 71 73 Pulse Rate [ 80 Anterior Bilateral Throughout] Respiratory 20 22 Rate Respiratory 18 Rate [Anterior Bilateral Throughout] Blood Pressure 130/82 152/83 O2 Sat by Pulse 96 91 Oximetry 07/18/17 07/18/17 07/18/17 07:49 08:01 11:19 Temperature 98.7 F Pulse Rate 66 Pulse Rate [ 84 Anterior Bilateral Throughout] Respiratory 20 Rate Respiratory 18 Rate [Anterior Bilateral Throughout] Blood Pressure 144/83 O2 Sat by Pulse 95 78 L Oximetry 07/18/17 07/18/17 07/18/17 11:25 11:29 11:30 Temperature Pulse Rate 66 66 66 Pulse Rate [ Anterior Bilateral Throughout] Respiratory Rate Respiratory Rate [Anterior Bilateral Throughout] Blood Pressure 144/83 144/83 144/83 O2 Sat by Pulse Oximetry - Labs 07/18/17 04:07 07/18/17 04:07 Diabetes panel 07/18/17 Range/Units 04:07 Sodium 131 L D (137-145) mmol/L Potassium 4.3 (3.6-5.0) mmol/L Chloride 97.2 L (98-107) mmol/L Carbon Dioxide 20 L (22-30) mmol/L BUN 14 (7-17) mg/dL Creatinine 0.8 (0.7-1.2) mg/dL Glucose 121 H (65-100) mg/dL Calcium 7.6 L (8.4-10.2) mg/dL AST 16 (5-40) units/L ALT 7 (7-56) units/L Alkaline Phosphatase 55 (35-129) units/L Total Protein 5.9 L (6.3-8.2) g/dL Albumin 2.6 L (3.9-5) g/dL Calcium panel 07/18/17 Range/Units 04:07 Calcium 7.6 L (8.4-10.2) mg/dL Albumin 2.6 L (3.9-5) g/dL Pituitary panel 07/18/17 Range/Units 04:07 Sodium 131 L D (137-145) mmol/L Potassium 4.3 (3.6-5.0) mmol/L Chloride 97.2 L (98-107) mmol/L Carbon Dioxide 20 L (22-30) mmol/L BUN 14 (7-17) mg/dL Creatinine 0.8 (0.7-1.2) mg/dL Glucose 121 H (65-100) mg/dL Calcium 7.6 L (8.4-10.2) mg/dL Adrenal panel 07/18/17 Range/Units 04:07 Sodium 131 L D (137-145) mmol/L Potassium 4.3 (3.6-5.0) mmol/L Chloride 97.2 L (98-107) mmol/L Carbon Dioxide 20 L (22-30) mmol/L BUN 14 (7-17) mg/dL Creatinine 0.8 (0.7-1.2) mg/dL Glucose 121 H (65-100) mg/dL Calcium 7.6 L (8.4-10.2) mg/dL Total Bilirubin 0.30 (0.1-1.2) mg/dL AST 16 (5-40) units/L ALT 7 (7-56) units/L Alkaline Phosphatase 55 (35-129) units/L Total Protein 5.9 L (6.3-8.2) g/dL Albumin 2.6 L (3.9-5) g/dL
--- NOTE | 2017-07-18 15:39 | Progress Note ---
Assessment and Plan Assessment and plan: 72 YO Female with Obesity, COPD, LUCA Noncompliant with CPAP, consult placed by Dr. Wills for COPD and HTN in a patient with post op open cholecystectomy. Pt seen and evaluated, Pt denies shortness of breath, fever, chills, CP, Palpitations, NVD,Syncope, Increased sputum production, increased productive cough, nicotine use, unintentional weight loss, night sweats, leg swelling, calf pain, individual/family history of DVT/PE. No reported nursing events. (1) S/P Open cholecystectomy * Surgery following * Cultures with GNR-Ecoli. Resistant to Flouroquinolones. Will discontinue and start on AZITHROMYCIN AND FLAGYL * Can be discharged on both abx x 7-10 days * Antiemetic (2) HTN Urgency * Restarted home meds * Improved * IV hydralazin prn (3) COPD (chronic obstructive pulmonary disease) Early ambulation, OOB to chair QID and PRN, Ambulate in hallway, Incentive spirometry, aspiration precautions, nebulizer therapy prn, supplemental oxygen prn as clinically indicated, (4) LUCA (obstructive sleep apnea) Pt noncompliant with CPAP (5) Obesity (BMI 35.0-39.9 without comorbidity) Increased physical activity as discharge, balanced diet. (6) Hyponatremia Monitor. (7) DVT/GI prophy As ordered. Stable for discharge from Hospitalist stand point History Interval history: Patient seen and examined, Still with no BM but flatus, was NPO yesterday due to nausea, reports improving today Hospitalist Physical - Physical exam Narrative exam: General appearance: Present: no acute distress, obese - EENT Eyes: Present: PERRL, EOM intact ENT: hearing intact - Neck Neck: Present: supple, normal ROM - Respiratory Respiratory effort: normal Respiratory: bilateral: CTA - Cardiovascular Rhythm: regular Heart Sounds: Present: S1 & S2 - Extremities Extremities: no ischemia, pulses intact, pulses symmetrical, No edema, normal temperature, Full ROM Peripheral Pulses: within normal limits - Abdominal General gastrointestinal: soft, tender Localized gastrointestinal: Tender: RUQ (surgical site) - Integumentary Integumentary: Present: warm, dry (surgical dressing in place) - Psychiatric Psychiatric: appropriate mood/affect - Neurologic Neurologic: CNII-XII intact - Allied Health Allied health notes reviewed: nursing - Constitutional Vitals: Temp Pulse Resp BP Pulse Ox 98.0 F 55 L 20 140/92 100 07/18/17 15:11 07/18/17 15:11 07/18/17 15:11 07/18/17 15:11 07/18/17 15:11 General appearance: Present: no acute distress, obese Results - Labs CBC & Chem 7: 07/18/17 04:07 07/18/17 04:07 Labs: Laboratory Last Values WBC 12.7 K/mm3 (4.5-11.0) H 07/18/17 04:07 RBC 3.75 M/mm3 (3.65-5.03) 07/18/17 04:07 Hgb 9.0 gm/dl (10.1-14.3) L 07/18/17 04:07 Hct 27.5 % (30.3-42.9) L 07/18/17 04:07 MCV 73 fl (79-97) L 07/18/17 04:07 MCH 24 pg (28-32) L 07/18/17 04:07 MCHC 33 % (30-34) 07/18/17 04:07 RDW 14.9 % (13.2-15.2) 07/18/17 04:07 Plt Count 195 K/mm3 (140-440) 07/18/17 04:07 Lymph % (Auto) 4.9 % (13.4-35.0) L 07/18/17 04:07 [place] % (Auto) 8.8 % (0.0-7.3) H 07/18/17 04:07 Eos % (Auto) 1.1 % (0.0-4.3) 07/18/17 04:07 Baso % (Auto) 0.1 % (0.0-1.8) 07/18/17 04:07 Lymph # 0.6 K/mm3 (1.2-5.4) L 07/18/17 04:07 [place] # 1.1 K/mm3 (0.0-0.8) H 07/18/17 04:07 Eos # 0.1 K/mm3 (0.0-0.4) 07/18/17 04:07 Baso # 0.0 K/mm3 (0.0-0.1) 07/18/17 04:07 Seg Neutrophils % 85.1 % (40.0-70.0) H 07/18/17 04:07 Seg Neutrophils # 10.8 K/mm3 (1.8-7.7) H 07/18/17 04:07 Sodium 131 mmol/L (137-145) L D 07/18/17 04:07 Potassium 4.3 mmol/L (3.6-5.0) 07/18/17 04:07 Chloride 97.2 mmol/L (98-107) L 07/18/17 04:07 Carbon Dioxide 20 mmol/L (22-30) L 07/18/17 04:07 Anion Gap 18 mmol/L 07/18/17 04:07 BUN 14 mg/dL (7-17) 07/18/17 04:07 Creatinine 0.8 mg/dL (0.7-1.2) 07/18/17 04:07 Estimated GFR > 60 ml/min 07/18/17 04:07 BUN/Creatinine Ratio 18 % 07/18/17 04:07 Glucose 121 mg/dL (65-100) H 07/18/17 04:07 Calcium 7.6 mg/dL (8.4-10.2) L 07/18/17 04:07 Total Bilirubin 0.30 mg/dL (0.1-1.2) 07/18/17 04:07 AST 16 units/L (5-40) 07/18/17 04:07 ALT 7 units/L (7-56) 07/18/17 04:07 Alkaline Phosphatase 55 units/L (35-129) 07/18/17 04:07 Total Protein 5.9 g/dL (6.3-8.2) L 07/18/17 04:07 Albumin 2.6 g/dL (3.9-5) L 07/18/17 04:07 Albumin/Globulin Ratio 0.8 % 07/18/17 04:07
[2017-07-19] MEDS: XALATAN 0.005% OU SCH (00:26)
[2017-07-19] MEDS: LEVAQUIN 500MG/100ML 500 MG/100 ML BAG IV SCH (00:43)
[2017-07-19] MEDS: MORPHINE IV PRN (03:56)
[2017-07-19] MEDS: ZOFRAN IV PRN (03:56)
[2017-07-19] MEDS: D5W/0.45% NACL/KCL 20 MEQ 20 MEQ/1,000 ML BAG IV SCH (05:49)
[2017-07-19] MEDS: FLAGYL PO SCH ×2 (06:27→13:53)
[2017-07-19] MEDS: PULMICORT IH SCH (09:02)
[2017-07-19] MEDS: BROVANA NEBU IH SCH (09:02)
[2017-07-19 09:51] VITALS: BP 148/81
[2017-07-19] MEDS: ALDACTONE PO SCH (10:02)
[2017-07-19] MEDS: CLARITIN PO SCH (10:02)
[2017-07-19] MEDS: COZAAR PO SCH (10:03)
[2017-07-19] MEDS: TENORMIN PO SCH (10:04)
[2017-07-19] MEDS: HCTZ PO SCH (10:04)
[2017-07-19] MEDS: NORCO 5/325 PO PRN (11:10)
--- NOTE | 2017-07-19 12:53 | Progress Note ---
Assessment and Plan Pt feeling well without compl. henok full liq. eager to go home Abd soft, non tender stable d/c ANDREW advance to solid low fat diet will d/c today if diet henok & cleared by med rto next Sun Selected Entries 07/19/17 07/19/17 08:30 10:04 Temperature 98.9 F Pulse Rate 69 Blood Pressure 148/81 Objective Vital Signs - 12hr 07/19/17 07/19/17 07/19/17 05:44 05:48 08:30 Temperature 98.5 F 98.9 F Pulse Rate 68 71 Pulse Rate [ Anterior Bilateral Throughout] Respiratory 18 18 Rate Respiratory Rate [Anterior Bilateral Throughout] Blood Pressure 132/85 148/81 O2 Sat by Pulse 95 95 Oximetry 07/19/17 07/19/17 07/19/17 09:00 09:10 10:02 Temperature Pulse Rate 69 Pulse Rate [ 65 18 L Anterior Bilateral Throughout] Respiratory Rate Respiratory 18 Rate [Anterior Bilateral Throughout] Blood Pressure 148/81 O2 Sat by Pulse Oximetry 07/19/17 07/19/17 07/19/17 10:03 10:04 11:10 Temperature Pulse Rate 69 69 Pulse Rate [ Anterior Bilateral Throughout] Respiratory 20 Rate Respiratory Rate [Anterior Bilateral Throughout] Blood Pressure 148/81 148/81 O2 Sat by Pulse Oximetry - Labs 07/18/17 04:07 07/18/17 04:07
--- NOTE | 2017-07-19 12:55 | Discharge Summary ---
Providers - Providers Date of Admission: 07/13/17 13:21 Attending physician: CAMILA DICKEY 07/13/17 13:19 Consult to Physician [CONS] Routine Consulting Provider: DUC MAJOR Reason For Exam: HTN, COPD Place consult to:: dr. bullock Notified:: dr. bullock Phone number called:: [phone] 07/17/17 19:52 Physical Therapy Evaluation and Treat [CONS] Routine Comment: Reason For Exam: pt having difficulty walking post op Primary care physician: NYLA BRADLEY MD Hospitalization Condition: Good Disposition: DC-01 TO HOME OR SELFCARE Core Measure Documentation - Palliative Care Palliative Care/ Comfort Measures: Not Applicable - Core Measures Any of the following diagnoses?: none Exam - Constitutional Vitals: Temp Pulse Resp BP Pulse Ox 98.9 F 69 20 148/81 95 07/19/17 08:30 07/19/17 10:04 07/19/17 11:10 07/19/17 10:04 07/19/17 08:30 Plan Activity: other (solid low fat diet. may d/c today if diet henok and cleared by med. may begin washing incision in am. no lifting over 5 lbs x 3 wks. call if any abd pain N or V. rto next Sun) Weight Bearing Status: Non-Weight Bearing Diet: other Wound: per your surgeon's advice Follow up with: CAMILA DICKEY MD [Staff Physician] - 07/27/17
[2017-07-19] MEDS: cefTRIAXone 1 GM in NACL 0.9% 20 ML IV SCH (13:45)
--- NOTE | 2017-07-19 16:11 | Progress Note ---
Assessment and Plan Assessment and plan: 72 YO Female with Obesity, COPD, LUCA Noncompliant with CPAP, consult placed by Dr. Wills for COPD and HTN in a patient with post op open cholecystectomy. Pt seen and evaluated, Pt denies shortness of breath, fever, chills, CP, Palpitations, NVD,Syncope, Increased sputum production, increased productive cough, nicotine use, unintentional weight loss, night sweats, leg swelling, calf pain, individual/family history of DVT/PE. No reported nursing events. (1) S/P Open cholecystectomy * Surgery following * Cultures with GNR-Ecoli. Resistant to Flouroquinolones. W * Can be discharged on Augmentin abx x 7-10 days * Antiemetic (2) HTN Urgency * Restarted home meds * Improved * IV hydralazin prn (3) COPD (chronic obstructive pulmonary disease) Early ambulation, OOB to chair QID and PRN, Ambulate in hallway, Incentive spirometry, aspiration precautions, nebulizer therapy prn, supplemental oxygen prn as clinically indicated, (4) LUCA (obstructive sleep apnea) Pt noncompliant with CPAP (5) Obesity (BMI 35.0-39.9 without comorbidity) Increased physical activity as discharge, balanced diet. (6) Hyponatremia Monitor. (7) DVT/GI prophy As ordered. Stable for discharge from Hospitalist stand point History Interval history: Patient seen and examined, tolerating diet diet being advanced. Hospitalist Physical - Physical exam Narrative exam: General appearance: Present: no acute distress, obese - EENT Eyes: Present: PERRL, EOM intact ENT: hearing intact - Neck Neck: Present: supple, normal ROM - Respiratory Respiratory effort: normal Respiratory: bilateral: CTA - Cardiovascular Rhythm: regular Heart Sounds: Present: S1 & S2 - Extremities Extremities: no ischemia, pulses intact, pulses symmetrical, No edema, normal temperature, Full ROM Peripheral Pulses: within normal limits - Abdominal General gastrointestinal: soft, tender Localized gastrointestinal: Tender: RUQ (surgical site But improved) - Integumentary Integumentary: Present: warm, dry (surgical dressing in place) - Psychiatric Psychiatric: appropriate mood/affect - Neurologic Neurologic: CNII-XII intact - Allied Health Allied health notes reviewed: nursing - Constitutional Vitals: Temp Pulse Resp BP Pulse Ox 98.9 F 69 20 148/81 95 07/19/17 08:30 07/19/17 10:04 07/19/17 11:10 07/19/17 10:04 07/19/17 08:30 General appearance: Present: no acute distress, obese Results - Labs CBC & Chem 7: 07/18/17 04:07 07/18/17 04:07 Labs: Laboratory Last Values WBC 12.7 K/mm3 (4.5-11.0) H 07/18/17 04:07 RBC 3.75 M/mm3 (3.65-5.03) 07/18/17 04:07 Hgb 9.0 gm/dl (10.1-14.3) L 07/18/17 04:07 Hct 27.5 % (30.3-42.9) L 07/18/17 04:07 MCV 73 fl (79-97) L 07/18/17 04:07 MCH 24 pg (28-32) L 07/18/17 04:07 MCHC 33 % (30-34) 07/18/17 04:07 RDW 14.9 % (13.2-15.2) 07/18/17 04:07 Plt Count 195 K/mm3 (140-440) 07/18/17 04:07 Lymph % (Auto) 4.9 % (13.4-35.0) L 07/18/17 04:07 Page % (Auto) 8.8 % (0.0-7.3) H 07/18/17 04:07 Eos % (Auto) 1.1 % (0.0-4.3) 07/18/17 04:07 Baso % (Auto) 0.1 % (0.0-1.8) 07/18/17 04:07 Lymph # 0.6 K/mm3 (1.2-5.4) L 07/18/17 04:07 Page # 1.1 K/mm3 (0.0-0.8) H 07/18/17 04:07 Eos # 0.1 K/mm3 (0.0-0.4) 07/18/17 04:07 Baso # 0.0 K/mm3 (0.0-0.1) 07/18/17 04:07 Seg Neutrophils % 85.1 % (40.0-70.0) H 07/18/17 04:07 Seg Neutrophils # 10.8 K/mm3 (1.8-7.7) H 07/18/17 04:07 Sodium 131 mmol/L (137-145) L D 07/18/17 04:07 Potassium 4.3 mmol/L (3.6-5.0) 07/18/17 04:07 Chloride 97.2 mmol/L (98-107) L 07/18/17 04:07 Carbon Dioxide 20 mmol/L (22-30) L 07/18/17 04:07 Anion Gap 18 mmol/L 07/18/17 04:07 BUN 14 mg/dL (7-17) 07/18/17 04:07 Creatinine 0.8 mg/dL (0.7-1.2) 07/18/17 04:07 Estimated GFR > 60 ml/min 07/18/17 04:07 BUN/Creatinine Ratio 18 % 07/18/17 04:07 Glucose 121 mg/dL (65-100) H 07/18/17 04:07 Calcium 7.6 mg/dL (8.4-10.2) L 07/18/17 04:07 Total Bilirubin 0.30 mg/dL (0.1-1.2) 07/18/17 04:07 AST 16 units/L (5-40) 07/18/17 04:07 ALT 7 units/L (7-56) 07/18/17 04:07 Alkaline Phosphatase 55 units/L (35-129) 07/18/17 04:07 Total Protein 5.9 g/dL (6.3-8.2) L 07/18/17 04:07 Albumin 2.6 g/dL (3.9-5) L 07/18/17 04:07 Albumin/Globulin Ratio 0.8 % 07/18/17 04:07
--- NOTE | 2017-07-20 10:32 | Discharge Summary ---
DISCHARGE DIAGNOSIS: Acute and chronic cholecystitis. PROCEDURE WHILE IN HOSPITAL: Open cholecystectomy. HOSPITAL COURSE: The patient is a pleasant 72-year-old female, who has multitude of medical problems including obesity, COPD, hypertension, etc., who was initially brought to the hospital weeks prior with severely acutely inflamed gallbladder. At that time, CT-guided cholecystostomy tube drainage was performed. At this time, the patient returned for semi-elective open cholecystectomy. The patient received her medical clearance from her primary care physician. She was admitted at this time and underwent cholecystectomy without incident. Her postoperative course has been essentially unremarkable. While in the hospital, the patient was followed by the hospitalist, who managed her medical issues. At this time, the patient is postoperative day #6, afebrile and feeling quite well. Her abdomen is soft and nontender. She is tolerating a low fat, full liquid diet without incident. The patient will thus be advanced to a solid low fat diet this morning and will tentatively be discharged today if her diet is well tolerated. The patient has been instructed to call us immediately if she has any evidence of nausea, vomiting, abdominal pain, or fever. If not, the patient will be followed up in the office next Sunday. JOB# [id number] REBECCA/PEARL
== END 2017-07-19 14:38 | disposition home or self-care (01) | DRG 414 ==
LOC: OR 10:37 → 3B-SURG 13:21
PROVIDERS: ADMIT Surgery; ATTEND Surgery
PROC: 0FT40ZZ Resection of Gallbladder, Open Approach (ICD-10-PCS; principal; 2017-07-13)
PROC: 0DNW0ZZ Release Peritoneum, Open Approach (ICD-10-PCS; 2017-07-13)
DX: K80.12 Calculus of gallbladder with acute and chronic cholecystitis without obstruction (principal); E43 Unspecified severe protein-calorie malnutrition; E87.1 Hypo-osmolality and hyponatremia; K66.0 Peritoneal adhesions (postprocedural) (postinfection); I16.0 Hypertensive urgency; E66.01 Morbid (severe) obesity due to excess calories; G47.33 Obstructive sleep apnea (adult) (pediatric); J44.9 Chronic obstructive pulmonary disease, unspecified; Z82.49 Family history of ischemic heart disease and other diseases of the circulatory system; Z83.3 Family history of diabetes mellitus; Z79.899 Other long term (current) drug therapy; Z68.35 Body mass index [BMI] 35.0-35.9, adult; Z71.3 Dietary counseling and surveillance; Z88.8 Allergy status to other drugs, medicaments and biological substances; Z91.19 Patient's noncompliance with other medical treatment and regimen
CPT/HCPCS: 36415; 74022; 80053; 85025; 87075; 87076; 87116; 87186; 88304; 94640; 94760; G8978-GP; G8979-GP; J0360; J0456; J0690; J0696; J1100; J1170; J1956; J2270; J2405; J2704; J2710; J7050; J7120